=== PATIENT | male | born 1950 | race Caucasian/White ===

== ENCOUNTER → 2019-10-04 | Outpatient (REF) | payer BC | LOC: M SMT 17:05 | PROVIDERS: ATTEND Nurse Practitioner Family | DX: N39.0 Urinary tract infection, site not specified (principal) ==

== ENCOUNTER → 2019-10-18 | Outpatient (CLI) | payer BC, MEDICARE ==
[~2019-10-18] MED LIST: BIMA01SOL; CIPR-249 PO; FLOM0.4C39 PO; HYDR25TAB; LEVO75TA4; LOSA50TA88; MONT10TA4; PANT40TA3; SIMV20TA22; VERA120T9
--- NOTE | 2019-10-18 17:27 | REPPI ---
Prostate sonography: History: Elevated PSA Sonographic findings: Trans rectal prostate sonography demonstrates unremarkable seminal vesicles. Prostate gland is heterogeneously enlarged with calcifications and cystic changes noted. Glandular dimensions are measured at 5.5 x 4.4 x 6.1 cm with a calculated glandular volume of 78.2 ml. Transrectal sonographic guidance is provided to Dr. Reid who performed trans rectal ultrasound guided needle biopsy procedure . Electronically Signed by Raghav Angelo MD 10/18/2019 05:18 P
== END ==
LOC: M SMT PRO 09:11
PROVIDERS: ATTEND Urology
DX: R97.20 Elevated prostate specific antigen [PSA] (principal)
CPT/HCPCS: 55700; 76872; 76942; G0416

== ENCOUNTER 2019-10-19 06:17 | Emergency (ER) | payer BC, MEDICARE ==
[~2019-10-19] VITALS: Ht 172.7 cm; Wt 111.8 kg
[2019-10-19] MEDS ORDERED: HYDR25TAB (06:24)
[2019-10-19] MEDS ORDERED: MONT10TA4 (06:24)
[2019-10-19] MEDS ORDERED: VERA120T9 (06:24)
[2019-10-19] MEDS ORDERED: BIMA01SOL (06:24)
[2019-10-19] MEDS ORDERED: LEVO75TA4 (06:24)
[2019-10-19] MEDS ORDERED: SIMV20TA22 (06:24)
[2019-10-19] MEDS ORDERED: PANT40TA3 (06:24)
[2019-10-19] MEDS ORDERED: LOSA50TA88 (06:24)
[2019-10-19] MEDS ORDERED: LIDOCAINE 2% 5ML JELLY UROJET TOP ONE (07:00)
[2019-10-19] MEDS ORDERED: LIDOCAINE 2% INJ 100 MG/5 ML SYRINGE As Ordered ONE (07:01)
[2019-10-19] MEDS ORDERED: LIDOCAINE 2% 5ML JELLY UROJET As Ordered ONE (07:02)
[2019-10-19] MEDS ORDERED: FLOM0.4C39 PO (07:45)
[2019-10-19] MEDS ORDERED: CIPR-249 PO (07:45)
[2019-10-19 08:00] LABS: BASO % 0.5 % (0.0-1.0); EOS # 0.1 10^3/uL (0.0-0.5); EOS % 0.9 % (0.0-3.0); HEMATOCRIT 38.5 % (42.0-52.0); HEMOGLOBIN 13.9 g/dl (13.5-17.5); LYMPH # 1.3 10^3/uL (1.5-5.0); LYMPH % 19.1 % (24.0-44.0); MEAN CORPUSCULAR HEMOGLOBIN 33.3 pg (27.0-33.0); MEAN CORPUSCULAR HGB CONC 36.1 g/dl (32.0-36.5); MEAN CORPUSCULAR VOLUME 92.3 fl (80.0-96.0); MONO # 0.4 10^3/uL (0.0-0.8); MONO % 6.6 % (0.0-5.0); NEUTROPHILS # 4.8 10^3/uL (1.5-8.5); NEUTROPHILS % 72.6 % (36.0-66.0); PLATELET COUNT, AUTOMATED 321 10^3/uL (150-450); RED BLOOD COUNT 4.17 10^6/uL (4.30-6.10); WHITE BLOOD COUNT 6.6 10^3/uL (4.0-10.0)
[2019-10-19 08:02] VITALS: BP 124/67
== END 2019-10-19 08:14 | disposition home or self-care (01) ==
LOC: M ED 06:17
DX: R33.9 Retention of urine, unspecified (principal); R31.9 Hematuria, unspecified; I10 Essential (primary) hypertension; E78.5 Hyperlipidemia, unspecified; E03.9 Hypothyroidism, unspecified; K21.9 Gastro-esophageal reflux disease without esophagitis; Z79.899 Other long term (current) drug therapy; Z79.890 Hormone replacement therapy

== ENCOUNTER → 2020-06-14 | Outpatient (CLI) | payer MEDICARE ==
[~2020-06-14] MED LIST changes: +HYDR-3490; -HYDR25TAB; +MONT10TA10; -MONT10TA4; +PANT40TA29; -PANT40TA3
--- NOTE | 2020-06-14 11:31 | REP ---
INDICATION: F/U FX. COMPARISON: Outside examination dated 05/29/2020 TECHNIQUE: AP, lateral, oblique views of the left 5th digit. FINDINGS: A comminuted fracture of the distal phalanx is appreciated with overlying soft tissue laceration and injury. Open wound/compound fracture cannot be excluded. IMPRESSION: Comminuted fracture of the distal phalanx with soft tissue injury. <Electronically signed by Tristan Martinez > 06/14/20 1121
== END ==
LOC: M SOG 11:15
PROVIDERS: ATTEND Orthopaedic Surgery Sports Medicine
DX: S62.637D Displaced fracture of distal phalanx of left little finger, subsequent encounter for fracture with routine healing (principal); X58.XXXD Exposure to other specified factors, subsequent encounter

== ENCOUNTER → 2023-11-12 | Outpatient (REF) | payer MEDICARE ==
[~2023-11-12] MED LIST changes: +LOSA50TA28; -LOSA50TA88; -MONT10TA10; +MONT10TA97
== END ==
LOC: M SFHCDERM 15:54
PROVIDERS: ATTEND Physician Assistant
DX: L57.0 Actinic keratosis (principal)